=== PATIENT | female | born 1945 | race Hispanic/Latino ===

== ENCOUNTER 2018-09-30 22:48 | Emergency (ER) | payer MEDICARE ==
--- NOTE | 2018-10-01 00:26 | ED PDOC ---
HPI: Headache Time Seen by Provider: 09/30/18 23:31 Chief Complaint (Nursing): Headache Chief Complaint (Provider): Headache History Per: Patient History/Exam Limitations: no limitations Onset/Duration Of Symptoms: Hrs ([employer]) Additional Complaint(s): 73 y/o female with history of hypertension presents to the ED for evaluation of head injury with associated headache s/p fall prior to arrival. Patient reports she [place] [employer] [place] and her the back of her head. Patient states she remembers everything and was able to walk after the incident. She reports feeling a throbbing headache. Denies nausea, vomiting, neck pain or back pain. Patient states she also has history of arthritis. Past Medical History Reviewed: Historical Data, Nursing Documentation, Vital Signs Vital Signs: Last Vital Signs Temp 98.0 F 09/30/18 23:06 Pulse 83 09/30/18 23:06 Resp 16 09/30/18 23:06 BP 129/67 09/30/18 23:06 Pulse Ox 96 09/30/18 23:06 - Medical History PMH: Arthritis, HTN - Surgical History Surgical History: Appendectomy, Cholecystectomy - Family History Family History: States: Unknown Family Hx - Allergies Allergies/Adverse Reactions: Allergies Allergy/AdvReac Type Severity Reaction Status Date / Time bacitracin Allergy RASH Verified 09/30/18 23:08 latex Allergy RASH Verified 09/30/18 23:08 Review of Systems ROS Statement: Except As Marked, All Systems Reviewed And Found Negative Gastrointestinal: Negative for: Nausea, Vomiting Musculoskeletal: Negative for: Neck Pain, Back Pain Neurological: Positive for: Headache Physical Exam - Reviewed Nursing Documentation Reviewed: Yes Vital Signs Reviewed: Yes - Physical Exam Appears: Positive for: Well, Non-toxic, No Acute Distress Head Exam: Positive for: ATRAUMATIC, NORMAL INSPECTION, NORMOCEPHALIC Skin: Positive for: Normal Color, Warm, DRY Eye Exam: Positive for: EOMI, Normal appearance, PERRL ENT: Positive for: Normal ENT Inspection Neck: Positive for: Normal, Painless ROM, Supple Cardiovascular/Chest: Positive for: Regular Rate, Rhythm. Negative for: Murmur Respiratory: Positive for: Normal Breath Sounds. Negative for: Respiratory Distress Gastrointestinal/Abdominal: Positive for: Normal Exam, Soft. Negative for: Tenderness Back: Positive for: Normal Inspection. Negative for: L CVA Tenderness, R CVA Tenderness, Vertebral Tenderness (C spine, T spine, L spine) Extremity: Positive for: Normal ROM. Negative for: Pedal Edema, Deformity Neurologic/Psych: Positive for: Alert, fundraising specialist II-XII (intact), Oriented, Cerebellar Tests (normal), Gait (steady). Negative for: Motor/Sensory Deficits - ECG O2 Sat by Pulse Oximetry: 96 (RA) Pulse Ox Interpretation: Normal Medical Decision Making Medical Decision Making: Time: 23:50 A/P: Head injury in elderly patient. Will need CT head and neck. * CT Head * CT Neck 01:40 CT neck Findings: Grade 1 anterolisthesis of C3 on C4. Chronic. Anterolisthesis of C4 on C5, chronic. There are diffuse spondylotic changes. Findings are demonstrated by disc space narrowing, osteophyte formation and degenerative endplate changes. Facet joint arthropathy is noted. No fracture or dislocation is seen. No aggressive bone lesion is noted. Impression: Spondylosis. Multilevel facet joint arthropathy. No acute bone pathology. 01:43 CT head FINDINGS: BRAIN No acute intraparenchymal hemorrhage. No mass lesion. No CT evidence for acute territorial infarct. No midline shift or extra-axial collections. VENTRICLES: No hydrocephalus. ORBITS: The orbits are unremarkable. SINUSES AND MASTOIDS: The paranasal sinuses and mastoid air cells are clear. BONES: No fracture. SOFT TISSUES: There is left parietal scalp hematoma. IMPRESSION: 1. There is left parietal scalp hematoma. 2. No acute intracranial abnormality identified. 01:46 Patient CTs reviewed. No active disease or abnormalities demonstrated. Patient is stable for discharge. Patient is awake, alert, oriented, steady gait, no neuro deficit upon dishcharge. Scribe Attestation: Documented by Nehemias Chen acting as a scribe for Johan Lopez MD. Provider Scribe Attestation: All medical record entries made by the Scribe were at my direction and p ersonally dictated by me. I have reviewed the chart and agree that the record accurately reflects my personal performance of the history, physical exam, medical decision making, and the department course for this patient. I have also personally directed, reviewed, and agree with the discharge instructions and disposition. Disposition - Clinical Impression Clinical Impression: Head injury - Patient ED Disposition Is Patient to be Admitted: No - Disposition Referrals: Chaz Menendez [Outside] Disposition: Routine/Home Disposition Time: 01:46 Condition: STABLE Instructions: Closed Head Injury Forms: Chaz Hay (Uzbek)
[2018-10-01 01:55] VITALS: BP 118/57; PULSE 67; RESP 18; TEMP 97.7
[2018-10-01 04:03] VITALS: O2SAT 96
--- NOTE | 2018-10-01 09:58 | CT ---
Date of service: 10/01/2018 PROCEDURE: CT HEAD WITHOUT CONTRAST. HISTORY: head injury, on ASA COMPARISON: None available. TECHNIQUE: Axial computed tomography images were obtained through the head/brain without intravenous contrast. Radiation dose: Total exam DLP = 816.86 mGy-cm. This CT exam was performed using one or more of the following dose reduction techniques: Automated exposure control, adjustment of the mA and/or kV according to patient size, and/or use of iterative reconstruction technique. FINDINGS: HEMORRHAGE: No intracranial hemorrhage. BRAIN: No mass effect or edema. No atrophy or chronic microvascular ischemic changes. VENTRICLES: Unremarkable. No hydrocephalus. CALVARIUM: No fracture. High left frontoparietal multilocular scalp hematoma. PARANASAL SINUSES: Unremarkable as visualized. No significant inflammatory changes. MASTOID AIR CELLS: Unremarkable as visualized. No inflammatory changes. OTHER FINDINGS: None. IMPRESSION: Left frontoparietal multilocular scalp hematoma. No intracranial hemorrhage. The preliminary findings for this examination were reported by [facility] Radiology at 1:43 a.m. on 10/01/2018. There is concurrence of this report with the preliminary findings.
--- NOTE | 2018-10-01 12:49 | CT ---
Date of service: 10/01/2018 PROCEDURE: CT Cervical Spine without contrast HISTORY: head injury, on ASA COMPARISON: None available. TECHNIQUE: Axial computed tomography images were obtained of the cervical spine without the use of intravenous contrast. Coronal and sagittal reformatted images were created and reviewed. Radiation dose: Total exam DLP = 346.11 mGy-cm. This CT exam was performed using one or more of the following dose reduction techniques: Automated exposure control, adjustment of the mA and/or kV according to patient size, and/or use of iterative reconstruction technique. FINDINGS: VERTEBRAE: The vertebral bodies are maintained in height. There is grade 1 anterolisthesis at at C3-4 and at C4-5, likely degenerative in origin. Normal alignment is maintained elsewhere throughout the cervical spine. DISCS/SPINAL CANAL/NEURAL FORAMINA: No gross evidence of disc herniation. Multilevel degenerative disc disease is noted most prominently at C5-6 and C6-7 but also involving C3-4 and C4-5. There is central spinal stenosis noted at the C5-6 level. Multilevel bilateral neural foraminal stenosis is noted. PARASPINAL SOFT TISSUES: Unremarkable. OTHER FINDINGS: None. IMPRESSION: No evidence of fracture. Multilevel degenerative change. Central spinal stenosis at C5-6. Grade 1 anterolisthesis at C3-4 and at C4-5 likely degenerative in origin The preliminary findings for this examination were reported by [facility] Radiology at 1:40 a.m. on 10/01/2018. There is concurrence of this report with the preliminary findings.
== END 2018-10-01 01:59 | disposition home or self-care (01) ==
LOC: H.ER 22:48
DX: S00.03XA Contusion of scalp, initial encounter (principal); S09.90XA Unspecified injury of head, initial encounter; W19.XXXA Unspecified fall, initial encounter; Y92.89 Other specified places as the place of occurrence of the external cause; I10 Essential (primary) hypertension; M48.02 Spinal stenosis, cervical region; M19.90 Unspecified osteoarthritis, unspecified site